=== PATIENT | male | born 1960 | race Caucasian/White ===

== ENCOUNTER 2022-05-19 03:06 | Emergency (ER) | payer BC ==
[2022-05-19] MEDS ORDERED: Ondansetron 4 MG/2 ML SDV IVPUSH ONE (16:00)
[2022-05-19] MEDS ORDERED: Ketorolac 30 MG/ML SDV IVPUSH ONE (16:00)
[2022-05-19] MEDS ORDERED: Tamsulosin 0.4 MG Cap.ER PO ONE ×2 (17:05→17:30)
[2022-05-19] MEDS ORDERED: Ketorolac 10 MG Tab PO ONE (17:30)
[2022-05-19] MEDS ORDERED: Ondansetron 4 MG Tab.DIS PO ONE (17:30)
[2022-05-19] MEDS ORDERED: Acetaminophen/oxyCODONE 325-5 MG Tab PO ONE (17:30)
[2022-06-12 13:37] LABS: CHLORIDE,CL 98 mmol/L (98-107); SODIUM,NA 137 mmol/L (136-145)
[2022-06-12 13:38] LABS: ESTIMATED GFR 66 mL/min (>=60)
== END 2022-05-19 17:44 | disposition home or self-care (01) ==
LOC: DL.ED 03:06
DX: N13.2 Hydronephrosis with renal and ureteral calculous obstruction (principal); K76.0 Fatty (change of) liver, not elsewhere classified; E11.29 Type 2 diabetes mellitus with other diabetic kidney complication
CPT/HCPCS: 36415; 74176; 80053; 81001; 82150; 83605; 83690; 85025; 87086; 96361; 96374; 96375; 99284-25

== ENCOUNTER 2022-06-12 09:55 | Emergency (ER) | payer BC, MEDICAID ==
[2022-06-12 10:32] LABS: ANION GAP 12.4 mEq/L (7-13)
== END 2022-06-12 11:50 | disposition home or self-care (01) ==
LOC: DL.ED 09:55
DX: R07.89 Other chest pain (principal); E78.00 Pure hypercholesterolemia, unspecified; I10 Essential (primary) hypertension; M10.9 Gout, unspecified; Z86.16 Personal history of COVID-19; Z79.82 Long term (current) use of aspirin; Z79.899 Other long term (current) drug therapy
CPT/HCPCS: 36415; 71045; 80053; 83605; 84484; 85025; 85379; 85610; 93005; 99285

== ENCOUNTER 2023-03-11 06:19 | Day surgery (SDC) | payer MEDICAID ==
[2023-03-11] MEDS: Dextrose 5%-0.45% NaCl 1,000 ML IV SCH (06:54)
[2023-03-11] MEDS ORDERED: Midazolam 1 MG/ML 2 ML SDV ONE (07:32)
[2023-03-11] MEDS ORDERED: fentaNYL 100 MCG/2 ML SDV ONE (07:33)
[2023-03-11] MEDS ORDERED: Midazolam 1 MG/ML 2 ML SDV IV ONE (07:33)
[2023-03-11] MEDS ORDERED: fentaNYL 100 MCG/2 ML SDV IV ONE (07:33)
[2023-03-11] MEDS: fentaNYL 100 MCG/2 ML SDV IV ONE ×3 (07:40→07:50)
[2023-03-11] MEDS: Midazolam 1 MG/ML 2 ML SDV IV ONE ×6 (07:41→07:49)
== END 2023-03-11 09:40 | disposition home or self-care (01) ==
LOC: DL.ENDO 06:19
PROVIDERS: ATTEND Internal Medicine Gastroenterology
DX: Z12.11 Encounter for screening for malignant neoplasm of colon (principal); D12.4 Benign neoplasm of descending colon; I10 Essential (primary) hypertension; E11.9 Type 2 diabetes mellitus without complications; E78.5 Hyperlipidemia, unspecified; E66.09 Other obesity due to excess calories; F10.90 Alcohol use, unspecified, uncomplicated; F12.90 Cannabis use, unspecified, uncomplicated; N52.9 Male erectile dysfunction, unspecified; Z68.30 Body mass index [BMI] 30.0-30.9, adult
CPT/HCPCS: J2250; J3010; J7042

== ENCOUNTER 2024-04-07 05:48 | Emergency (ER) | payer MEDICAID ==
[2024-04-07] MEDS: Ondansetron 4 MG/2 ML SDV IVPUSH ONE (06:34)
[2024-04-07] MEDS: Sodium Chloride 0.9% 1,000 ML IV ONE ×4 (06:36→15:25)
[2024-04-07 06:37] LABS: BASOPHILS PERCENT AUTO 0.3 % (0.0-1.0); EOSINOPHILS PERCENT AUTO 3.5 % (1.0-3.0); HEMOGLOBIN 15.4 g/dL (14.0-18.0); LYMPHOCYTES PERCENT AUTO 12.8 % (20.5-50.1); MEAN CORPUSCULAR HEMOGLOBIN 27.4 pg (27.0-34.0); MEAN CORPUSCULAR HGB CONC 32.8 g/dL (33.0-35.0); MEAN CORPUSCULAR VOLUME 83.5 fL (80-100); MONOCYTES PERCENT AUTO 8.4 % (2-8); PLATELET COUNT,PLT 539 10^3/uL (150-450); RED BLOOD CELL COUNT 5.63 10^6/uL (4.6-6.2); WHITE BLOOD CELL COUNT,WBC 14.8 10^3/uL (5.0-10.0)
[2024-04-07 06:55] LABS: A/G RATIO 0.8; ALANINE AMINOTRANSFERASE,ALT 29 U/L (16-63); ALBUMIN 4.2 g/dL (3.4-5.0); ALKALINE PHOSPHATASE 91 U/L (46-116); ANION GAP 19.3 mEq/L (7-13); ASPARTATE AMNIOTRANSFERASE,AST 14 U/L (15-37); BILIRUBIN TOTAL 0.5 mg/dL (0.2-1.0); BLOOD UREA NITROGEN,BUN 26 mg/dL (7-18); BUN/CREATININE RATIO 19.5 (No establ ref range); CALCIUM 10.1 mg/dL (8.5-10.1); CARBON DIOXIDE,CO2 25 mmol/L (21-32); CHLORIDE,CL 96 mmol/L (98-107); CREATININE 1.33 mg/dL (0.70-1.30); EST CRCL DRUG DOSING (CG) 60.55 mL/min; GLUCOSE RANDOM 350 mg/dL (70-99); MAGNESIUM 2.5 mg/dL (1.8-2.4); POTASSIUM,K 4.3 mmol/L (3.5-5.1); PROTEIN TOTAL,TP 9.2 g/dL (6.4-8.2); SODIUM,NA 136 mmol/L (136-145)
[2024-04-07 07:12] LABS: ESTIMATED GFR 60 mL/min (>=60)
[2024-04-07 07:18] LABS: LACTIC ACID 3.1 mmol/L (0.4-2.0)
[2024-04-07 07:20] LABS: LIPASE > 250 U/L (16-77)
[2024-04-07 07:24] LABS: APPEARANCE,URINE CLEAR (CLEAR); BILIRUBIN,URINE NEGATIVE (NEGATIVE); COLOR,URINE YELLOW (YELLOW); GLUCOSE,URINE >=1000 (NEGATIVE); KETONES,URINE TRACE (NEGATIVE); LEUKOCYTE ESTERASE,URINE NEGATIVE (NEGATIVE); NITRITE,URINE NEGATIVE (NEGATIVE); OCCULT BLOOD,URINE TRACE-INTACT (NEGATIVE); PROTEIN,URINE NEGATIVE (NEGATIVE); UROBILINOGEN,URINE 0.2 mg/dL (0.2-1.0)
[2024-04-07] MEDS: Iopamidol 612 MG/ML 100 ML Bottle IVPUSH ONE (07:46)
[2024-04-07 08:19] LABS: BACTERIA,URINE FEW /HPF (0-FEW/HPF); EPITHELIAL CELLS,URINE FEW /HPF (NOT SEEN); MUCUS,URINE FEW /LPF (NOT SEEN); WBC,URINE 0-5 /HPF (0-5/HPF)
[2024-04-07] MEDS ORDERED: 50% Dextrose in Water 50 ML Syringe IVPUSH PRN (08:58)
[2024-04-07] MEDS ORDERED: Glucagon,Human Recombinant 1 MG Vial IM PRN (08:58)
[2024-04-07] MEDS: Insulin Regular, Human 100 Units/ML 3 ML Vial IV ONE (09:07)
[2024-04-07] MEDS: Piperacillin/Tazobactam 3.375 GM in Sodium Chloride 0.9% 100 ML IV ONE (10:03)
[2024-04-07 10:14] LABS: C-REACTIVE PROTEIN 2.71 ng/dL (<=0.50)
[2024-04-07 10:17] LABS: KETONES,BLOOD NEGATIVE
[2024-04-07] MEDS: HYDROmorphone 1 MG/ML Syringe IVPUSH ONE (12:26)
[2024-04-07] MEDS: Losartan 50 MG Tab PO ONE (14:16)
[2024-04-07] MEDS: Hydrochlorothiazide 25 MG Tab PO ONE (14:16)
[2024-04-07] MEDS: HYDROmorphone 1 MG/ML Syringe IVPUSH PRN (15:25)
[2024-04-07] MEDS: Piperacillin/Tazobactam 3.375 GM in Sodium Chloride 0.9% 100 ML IV SCH (17:09)
== END 2024-04-07 19:20 ==
LOC: DL.ED 05:48
DX: E86.0 Dehydration (principal); K59.00 Constipation, unspecified; E78.00 Pure hypercholesterolemia, unspecified; I10 Essential (primary) hypertension; E11.9 Type 2 diabetes mellitus without complications; Z86.16 Personal history of COVID-19; Z79.899 Other long term (current) drug therapy; Z79.84 Long term (current) use of oral hypoglycemic drugs
CPT/HCPCS: 36415; 71045; 74177; 80053; 81001; 82009; 82947; 83605; 83690; 83735; 84145; 85025; 86140; 87040; 96361; 96365; 96375; 96376; 99285; A9270; J1170; J1815; J2405; J2543; J3490; J7030; Q9967; 99284

== ENCOUNTER 2024-04-19 19:48 | Emergency (ER) | payer MEDICAID ==
[2024-04-19] MEDS: Lactated Ringers 1,000 ML IV ONE (20:52)
[2024-04-19] MEDS: Sodium Chloride 0.9% 10 ML Syringe FLUSH PRN (20:52)
[2024-04-19 21:08] LABS: BASOPHILS PERCENT AUTO 0.2 % (0.0-1.0); EOSINOPHILS PERCENT AUTO 3.1 % (1.0-3.0); HEMATOCRIT 43.2 % (40.0-54.0); HEMOGLOBIN 14.1 g/dL (14.0-18.0); LYMPHOCYTES PERCENT AUTO 10.8 % (20.5-50.1); MEAN CORPUSCULAR HEMOGLOBIN 27.2 pg (27.0-34.0); MEAN CORPUSCULAR HGB CONC 32.6 g/dL (33.0-35.0); MEAN CORPUSCULAR VOLUME 83.4 fL (80-100); MONOCYTES PERCENT AUTO 8.1 % (2-8); NEUTROPHILS PERCENT AUTO 77.8 % (42.2-75.2); PLATELET COUNT,PLT 636 10^3/uL (150-450); RED BLOOD CELL COUNT 5.18 10^6/uL (4.6-6.2); WHITE BLOOD CELL COUNT,WBC 16.3 10^3/uL (5.0-10.0)
[2024-04-19] MEDS: HYDROmorphone 1 MG/ML Syringe IVPUSH ONE (21:12)
[2024-04-19] MEDS: Ondansetron 4 MG/2 ML SDV IVPUSH ONE (21:12)
[2024-04-19] MEDS: Scopalamine 1mg/3day Transdermal Patch TOP ONE (21:22)
[2024-04-19 21:46] LABS: ALANINE AMINOTRANSFERASE,ALT 22 U/L (16-63); ALBUMIN 2.4 g/dL (3.4-5.0); ALKALINE PHOSPHATASE 98 U/L (46-116); ANION GAP 12.8 mEq/L (7-13); ASPARTATE AMNIOTRANSFERASE,AST 11 U/L (15-37); BILIRUBIN TOTAL 0.4 mg/dL (0.2-1.0); BLOOD UREA NITROGEN,BUN 22 mg/dL (7-18); CALCIUM 9.5 mg/dL (8.5-10.1); CARBON DIOXIDE,CO2 30 mmol/L (21-32); CHLORIDE,CL 94 mmol/L (98-107); EST CRCL DRUG DOSING (CG) 73.21 mL/min; MAGNESIUM 2.1 mg/dL (1.8-2.4); POTASSIUM,K 3.8 mmol/L (3.5-5.1); PROTEIN TOTAL,TP 7.7 g/dL (6.4-8.2); SODIUM,NA 133 mmol/L (136-145)
[2024-04-19 21:55] LABS: A/G RATIO 0.45; ESTIMATED GFR 75 mL/min (>=60); GLUCOSE RANDOM 452 mg/dL (70-99); LIPASE > 250 U/L (16-77)
[2024-04-19] MEDS ORDERED: 50% Dextrose in Water 50 ML Syringe IVPUSH PRN (22:21)
[2024-04-19] MEDS ORDERED: Glucagon,Human Recombinant 1 MG Vial IM PRN (22:21)
[2024-04-19] MEDS: Insulin Lispro 100 Units/ML 3 ML Vial SUBCUT ONE (22:39)
[2024-04-19 22:46] LABS: APPEARANCE,URINE CLEAR (CLEAR); BILIRUBIN,URINE NEGATIVE (NEGATIVE); COLOR,URINE YELLOW (YELLOW); GLUCOSE,URINE >=1000 (NEGATIVE); KETONES,URINE NEGATIVE (NEGATIVE); LEUKOCYTE ESTERASE,URINE NEGATIVE (NEGATIVE); NITRITE,URINE NEGATIVE (NEGATIVE); OCCULT BLOOD,URINE TRACE-INTACT (NEGATIVE); PROTEIN,URINE NEGATIVE (NEGATIVE); UROBILINOGEN,URINE 0.2 mg/dL (0.2-1.0)
[2024-04-19 22:59] LABS: BACTERIA,URINE FEW /HPF (0-FEW/HPF); EPITHELIAL CELLS,URINE FEW /HPF (NOT SEEN); WBC,URINE 0-5 /HPF (0-5/HPF)
[2024-04-19] MEDS: Calcium Carbonate 500 MG Tab.Chew PO ONE (23:22)
== END 2024-04-19 23:33 | disposition home or self-care (01) ==
LOC: DL.ED 19:48
DX: C25.0 Malignant neoplasm of head of pancreas (principal); E86.0 Dehydration; K21.9 Gastro-esophageal reflux disease without esophagitis; I10 Essential (primary) hypertension; E11.65 Type 2 diabetes mellitus with hyperglycemia; E78.00 Pure hypercholesterolemia, unspecified; F17.210 Nicotine dependence, cigarettes, uncomplicated; Z86.16 Personal history of COVID-19; Z79.84 Long term (current) use of oral hypoglycemic drugs; Z79.899 Other long term (current) drug therapy
CPT/HCPCS: 36415; 80053; 81001; 82947; 83690; 83735; 85025; 96361; 96374; 96375; 99284-25; 99285; A9270-GY; J1170; J1815-GY; J2405; J3490; J7120